=== PATIENT | female | born 2000 | race Hispanic/Latino ===

== ENCOUNTER 2021-01-26 13:31 | Outpatient (CLI) | payer OTHER ==
[2021-01-26] MEDS ORDERED: LACTATED RINGERS 500 ML IV ONE (13:55)
[2021-01-26] MEDS ORDERED: ONDANSETRON 4 MG/2 ML INJ IV ONE (13:57)
[2021-01-26] MEDS ORDERED: METOCLOPRAMIDE 10 MG/2 ML INJ IV ONE (13:57)
[2021-01-26 14:13] VITALS: BP 102/59
[2021-01-26] MEDS ORDERED: LACTATED RINGERS 1,000 ML ONE (14:50)
[2021-01-26 15:35] LABS: Bacteria,Urine 2+ /HPF (Negative); Bilirubin,Urine NEG (Negative); Blood,Urine NEG (Negative); Color,Urine Yellow (Yellow); Hyaline Casts,Urine 2 /LPF; Mucus,Urine FEW /HPF; Protein,Urine <15 mg/dL mg/dL (Negative)
== END 2021-01-26 16:12 | disposition home or self-care (01) ==
LOC: TRG 13:31 → APU 13:32 → TRG 16:12
PROVIDERS: ATTEND Obstetrics & Gynecology
DX: O21.2 Late vomiting of pregnancy (principal); Z3A.32 32 weeks gestation of pregnancy
CPT/HCPCS: 59025; 81001; 87086; 96361; 96374; 96375; J2405; J2765; J7120; 96360; 96376

== ENCOUNTER 2021-02-10 21:56 | Outpatient (CLI) | payer OTHER ==
[2021-02-10 22:41] VITALS: BP 104/61
[2021-02-10] MEDS ORDERED: LACTATED RINGERS 1,000 ML IV ONE (22:50)
[2021-02-10] MEDS ORDERED: ONDANSETRON 4 MG/2 ML INJ IV ONE (23:12)
[2021-02-10] MEDS ORDERED: LOPERAMIDE 2 MG CAP PO ONE (23:12)
== END 2021-02-11 00:40 | disposition home or self-care (01) ==
LOC: TRG 21:56 → APU 21:57 → TRG 02-11 00:40
PROVIDERS: ATTEND Obstetrics & Gynecology
DX: O26.893 Other specified pregnancy related conditions, third trimester (principal); R19.7 Diarrhea, unspecified; O21.2 Late vomiting of pregnancy; O99.343 Other mental disorders complicating pregnancy, third trimester; F32.9 Major depressive disorder, single episode, unspecified; F41.9 Anxiety disorder, unspecified; Z3A.34 34 weeks gestation of pregnancy
CPT/HCPCS: 59025; 96365; J2405; J7120; 96360; 96374